=== PATIENT | male | born 1965 | race African-American/Black ===

== ENCOUNTER 2020-07-16 20:03 | Emergency (ER) | payer BC ==
[~2020-07-16] VITALS: Ht 188 cm; Wt 72.6 kg
[2020-07-16 20:18] LABS: BASOPHILS % (AUTO) 0.8 % (0.0-2.0); HEMATOCRIT 38 % (39-51); LYMPHOCYTES # (AUTO) 1.9 /CMM (0.8-4.8); LYMPHOCYTES % (AUTO) 39.5 % (20.0-44.0); MEAN CORPUSCULAR HGB CONC 34 g/dl (31.0-36.0); MEAN CORPUSCULAR VOLUME 91 fL (80-96); MONOCYTES # (AUTO) 0.6 /CMM (0.1-1.30); MONOCYTES % (AUTO) 12.2 % (2.0-12.0); NEUTROPHILS # (AUTO) 2.1 /CMM (1.8-8.9); NEUTROPHILS % (AUTO) 42.5 % (43.0-81.0); PLATELET COUNT (AUTO) 264 /CMM (150-450); RED BLOOD CELL COUNT(AUTO) 4.17 MIL/uL (4.5-6.0); WHITE BLOOD COUNT (AUTO) 4.9 K/uL (4.3-11.0)
--- NOTE | 2020-07-16 20:27 | NUR ---
covid swab was sent to lab
--- NOTE | 2020-07-16 20:30 | NUR ---
URINE COLLECTED. SENT TO LAB
[2020-07-16 20:48] LABS: CALCIUM, SERUM 9.3 mg/dL (8.5-10.1); CARBON DIOXIDE 27 mmol/L (21-32); CHLORIDE 105 mmol/L (98-107); CREATININE 0.9 mg/dL (0.6-1.3); GLUCOSE 119 mg/dL (74-106); POTASSIUM 4.1 mmol/L (3.5-5.1); SODIUM SERUM 141 mmol/L (136-145); UREA NITROGEN, BLOOD 14 mg/dL (7-18)
[2020-07-16 20:55] LABS: ALANINE AMINOTRANSFERASE 40 U/L (12-78); ALBUMIN 3.7 g/dL (3.4-5.0); ALCOHOL, BLOOD < 3 mg/dL (0-0); ALKALINE PHOSPHATASE 79 U/L (46-116); ASPARTATE AMINOTRANSFERASE 54 U/L (15-37); BILIRUBIN,DIRECT 0.1 mg/dL (0.0-0.2); BILIRUBIN,TOTAL 0.6 mg/dL (0.2-1.0)
[2020-07-16 20:58] LABS: ACETAMINOPHEN < 0 ug/ml (10-30)
[2020-07-16 20:59] LABS: BILIRUBIN,URINE NEGATIVE (NEGATIVE); COLOR,URINE YELLOW (YELLOW); LEUKOCYTE ESTERASE ,URINE NEGATIVE (NEGATIVE); NITRITE, URINE NEGATIVE (NEGATIVE); PROTEIN,URINE NEGATIVE (NEGATIVE); UGLUCOSE NEGATIVE (NEGATIVE); UROBILINOGEN,URINE 0.2 EU/dL (0.2)
--- NOTE | 2020-07-16 22:13 | NUR ---
FACESHEET AND CLINICALS FAXED TO [facility].
--- NOTE | 2020-07-17 00:10 | NUR ---
PT ACCEPTED TO [facility] BY DR BUTLER. UNIT 2. # FOR REPORT
--- NOTE | 2020-07-17 01:09 | NUR ---
[employer] CALLED FOR TRANSPORT. TRIP# [id number]
--- NOTE | 2020-07-17 03:21 | NUR ---
called [facility] transportation to follow up with trip and spoke to cherry. ETA fo [facility]: [phone]
[2020-07-17 03:34] VITALS: BP 120/82
--- NOTE | 2020-07-17 04:01 | NUR ---
report given to Clifford at [facility]
--- NOTE | 2020-07-17 05:16 | NUR ---
[facility] AT BEDSIDE FOR TRANSPORT
--- NOTE | 2020-07-17 05:21 | NUR ---
PT WAS PICKEDUP BY [facility] AND TRANSFERRED TO [facility]IA [facility] IN STABLE CONDITION. BELONGINGS WERE PICKED UP
== END 2020-07-17 05:22 ==
LOC: ER 20:10
DX: R45.851 Suicidal ideations (principal); D64.9 Anemia, unspecified; Z20.822 Contact with and (suspected) exposure to COVID-19; Z59.0 Homelessness; F31.9 Bipolar disorder, unspecified; F41.9 Anxiety disorder, unspecified
CPT/HCPCS: 36415; 80048; 80076; 80143; 80307; 80320; 81003; 85025; 87426; 99285; C9803; G0480

== ENCOUNTER 2021-04-15 15:37 | Emergency (ER) | payer BC, MEDICAID, OTHER ==
[~2021-04-15] VITALS: Ht 177.8 cm; Wt 72.6 kg
[2021-04-15 15:50] VITALS: BP 126/77
--- NOTE | 2021-04-15 15:50 | NUR ---
PT SELF PRESENTS TO ED C/O DEPRESSION FOR DAYS NOW. STATES HIS BELONGINGS GOT STOLEN W HIS USUAL PSYCH MEDICATION. NOW HE IS SAYING THAT HE HAS THOUGHTS OF HARMING OTHERS AND WANTS TO GO TO [facility] VOL[facility]. PT IS AAOX4, VERBALLY RESPONSIVE AND COOPERATIVE TO STAFF. STABLE VITALS. AWAITING MD CURTIS.
--- NOTE | 2021-04-15 15:54 | NUR ---
DR LECHUGA AT BEDSIDE FOR EVAL.
--- NOTE | 2021-04-15 16:15 | NUR ---
MILLING MACHINE OPERATOR GEAR AT BEDSIDE FOR BLOOD DRAW.
[2021-04-15 16:23] LABS: BASOPHILS # (AUTO) 0.1 K/uL (0.0-0.2); BASOPHILS % (AUTO) 1.1 % (0.0-2.0); EOSINOPHILS % (AUTO) 1.7 % (0.0-6.0); HEMATOCRIT 38 % (39-51); LYMPHOCYTES # (AUTO) 2.1 K/uL (0.8-4.8); LYMPHOCYTES % (AUTO) 33.6 % (20.0-44.0); MEAN CORPUSCULAR HGB CONC 34 g/dl (31.0-36.0); MEAN CORPUSCULAR VOLUME 90 fL (80-96); MONOCYTES # (AUTO) 0.4 K/uL (0.1-1.30); NEUTROPHILS # (AUTO) 3.5 K/uL (1.8-8.9); NEUTROPHILS % (AUTO) 56.6 % (43.0-81.0); PLATELET COUNT (AUTO) 300 K/uL (150-450); RED BLOOD CELL COUNT(AUTO) 4.27 MIL/uL (4.5-6.0); WHITE BLOOD COUNT (AUTO) 6.2 K/uL (4.3-11.0)
[2021-04-15 16:26] LABS: CALCIUM, SERUM 9.3 mg/dL (8.5-10.1); CARBON DIOXIDE 25 mmol/L (21-32); CHLORIDE 107 mmol/L (98-107); CREATININE 0.8 mg/dL (0.6-1.3); GLUCOSE 120 mg/dL (74-106); POTASSIUM 3.8 mmol/L (3.5-5.1); SODIUM SERUM 140 mmol/L (136-145); UREA NITROGEN, BLOOD 12 mg/dL (7-18)
[2021-04-15 16:29] LABS: BILIRUBIN,URINE NEGATIVE (NEGATIVE); COLOR,URINE YELLOW (YELLOW); LEUKOCYTE ESTERASE ,URINE NEGATIVE (NEGATIVE); NITRITE, URINE NEGATIVE (NEGATIVE); PROTEIN,URINE NEGATIVE (NEGATIVE); UGLUCOSE NEGATIVE (NEGATIVE); UROBILINOGEN,URINE 0.2 EU/dL (0.2)
[2021-04-15 16:32] LABS: ACETAMINOPHEN 0 ug/ml (10-30); ALANINE AMINOTRANSFERASE 27 U/L (12-78); ALBUMIN 3.6 g/dL (3.4-5.0); ALCOHOL, BLOOD < 3 mg/dL (0-0); ALKALINE PHOSPHATASE 76 U/L (46-116); ASPARTATE AMINOTRANSFERASE 28 U/L (15-37); BILIRUBIN,DIRECT 0.1 mg/dL (0.0-0.2); BILIRUBIN,TOTAL 0.6 mg/dL (0.2-1.0); TOTAL PROTEIN, SERUM 7.6 g/dL (6.4-8.2)
[2021-04-15 16:42] LABS: BACTERIA,URINE None seen /HPF (None Seen); WBC,URINE 0-2 /HPF (0-3)
[2021-04-15 16:43] LABS: SQUAMOUS EPITHELIAL CELL,UR None Seen /HPF (None Seen)
--- NOTE | 2021-04-15 18:50 | NUR ---
FAXED CLINICALS TO [facility]
--- NOTE | 2021-04-16 01:00 | NUR ---
ACCEPTED AT [facility] BY DR CORNEJO. #[phone] [facility] ETA: 45 MIN
--- NOTE | 2021-04-16 01:15 | NUR ---
REPORT GIVEN TO RAYSA AT [facility]
--- NOTE | 2021-04-16 01:31 | NUR ---
[facility] AT BED SIDE TO SECURITY OPERATIONS MANAGER THE PT
--- NOTE | 2021-04-16 01:50 | NUR ---
TRANSFERRED TO [facility] IN STABLE CONDITION WITH ALL HIS BELONGINGS
== END 2021-04-16 01:51 ==
LOC: ER 15:40
DX: R45.850 Homicidal ideations (principal); F31.9 Bipolar disorder, unspecified; Z20.822 Contact with and (suspected) exposure to COVID-19; Z59.00 Homelessness unspecified
CPT/HCPCS: 36415; 80048; 80076; 80143; 80307; 80320; 81001; 85025; 87426; 99285; C9803; G0480

== ENCOUNTER 2021-10-17 14:35 | Emergency (ER) | payer BC ==
[~2021-10-17] VITALS: Ht 185.4 cm; Wt 72.6 kg
--- NOTE | 2021-10-17 15:20 | NUR ---
BIBS FOR MEDICAL CLEARANCE, WANTS VOLUNTARY TO [facility]. THE PATIENT IS SI WITH A PLAN. THE PATIENT HAS HI. DENIES HAVING VISUAL/AUDITORY HALLUCINATIONS. DENIES PAIN. IN ROOM AIR AND DENIES SOB. RESPIRATION REGULAR AND UNLABORED. WILL CONTINUE TO MONITOR THE PATIENT.
--- NOTE | 2021-10-17 15:24 | NUR ---
COVID SWAB AND URINE COLLECTED AND SENT TO LAB
--- NOTE | 2021-10-17 15:24 | NUR ---
SECURITY PERSONNEL AT BEDSIDE FOR WANDING
[2021-10-17 15:54] LABS: BASOPHILS % (AUTO) 0.8 % (0.0-2.0); EOSINOPHILS % (AUTO) 3.9 % (0.0-6.0); HEMATOCRIT 40 % (39-51); HEMOGLOBIN 13.4 g/dL (13.5-17.5); LYMPHOCYTES # (AUTO) 1.9 K/uL (0.8-4.8); LYMPHOCYTES % (AUTO) 37.2 % (20.0-44.0); MEAN CORPUSCULAR HGB CONC 34 g/dl (31.0-36.0); MEAN CORPUSCULAR VOLUME 92 fL (80-96); MONOCYTES # (AUTO) 0.5 K/uL (0.1-1.30); MONOCYTES % (AUTO) 10.2 % (2.0-12.0); NEUTROPHILS # (AUTO) 2.4 K/uL (1.8-8.9); NEUTROPHILS % (AUTO) 47.9 % (43.0-81.0); PLATELET COUNT (AUTO) 303 K/uL (150-450); RED BLOOD CELL COUNT(AUTO) 4.35 MIL/uL (4.5-6.0)
[2021-10-17 16:03] LABS: CALCIUM, SERUM 8.6 mg/dL (8.5-10.1); CARBON DIOXIDE 29 mmol/L (21-32); CHLORIDE 105 mmol/L (98-107); CREATININE 0.8 mg/dL (0.6-1.3); GLUCOSE 108 mg/dL (74-106); POTASSIUM 3.7 mmol/L (3.5-5.1); SODIUM SERUM 141 mmol/L (136-145); UREA NITROGEN, BLOOD 11 mg/dL (7-18)
[2021-10-17 16:08] LABS: ALANINE AMINOTRANSFERASE 34 U/L (12-78); ALBUMIN 3.7 g/dL (3.4-5.0); ALCOHOL, BLOOD < 3 mg/dL (0-0); ALKALINE PHOSPHATASE 81 U/L (46-116); ASPARTATE AMINOTRANSFERASE 34 U/L (15-37); BILIRUBIN,DIRECT 0.1 mg/dL (0.0-0.2); BILIRUBIN,TOTAL 0.6 mg/dL (0.2-1.0); TOTAL PROTEIN, SERUM 7.4 g/dL (6.4-8.2)
[2021-10-17 16:11] LABS: BILIRUBIN,URINE NEGATIVE (NEGATIVE); COLOR,URINE YELLOW (YELLOW); LEUKOCYTE ESTERASE ,URINE NEGATIVE (NEGATIVE); NITRITE, URINE NEGATIVE (NEGATIVE); PH,URINE 6.5 (5.0-8.0); PROTEIN,URINE NEGATIVE (NEGATIVE); UGLUCOSE NEGATIVE (NEGATIVE); UROBILINOGEN,URINE 0.2 EU/dL (0.2)
[2021-10-17 16:11] LABS: ACETAMINOPHEN < 10 ug/ml (10-30)
--- NOTE | 2021-10-18 01:45 | NUR ---
justina faxed to [facility]
--- NOTE | 2021-10-18 03:11 | NUR ---
[facility]
--- NOTE | 2021-10-18 03:18 | NUR ---
[facility] ETA 45-60 MINS
--- NOTE | 2021-10-18 03:30 | NUR ---
REPORT GIVEN TO [place] [facility]
--- NOTE | 2021-10-18 04:05 | NUR ---
Eugenio fraser in [facility] - 10/18/21 at 0407 by BRUCE ALYCIA REPORT FILED WITH ROBERTO. OFFICERS WILL BE DISPATCHED.
--- NOTE | 2021-10-18 04:06 | NUR ---
Eugenio fraser in [facility] - 10/18/21 at 0408 by BRUCE RASHMI REPORT FILED WITH DIRECTOR OF SEARCH ENGINE MARKETING #[id number]. INCIDENT #[id number]
--- NOTE | 2021-10-18 04:07 | NUR ---
TARASOFF REPORT FILED WITH [employer] VALIDATION MANAGER #[id number]. INCIDENT #[id number]. OFFICERS WILL BE DISPATCHED
--- NOTE | 2021-10-18 05:04 | NUR ---
INCIDENT REPORT FILED WITH [employer] OFFICER MEGAN [id number] AND DREW [id number]. INFORMED PT DID NOT MEET TARASOFF CRITERIA DUE TO NOT PROVIDING SPECIFIC NAMES OF INIDIVIDUALS. HOWEVER, WAS INFORMED IF ANY ADDITIONAL INFORMATION IS OBTAINEDN TARASOFF CAN BE FILED AT [facility]#[id number]. PER [employer] NO FIREARMS REGISTERED UNDER PT NAME. [facility] CALLED AND INFORMED OF THIS INFORMATION AND SPOKE TO ANNIE.
--- NOTE | 2021-10-18 05:12 | NUR ---
orange picking supervisor eta 7am
[2021-10-18 07:58] VITALS: BP 132/76
--- NOTE | 2021-10-18 08:35 | NUR ---
TRANSPORTED TO [facility]. STABLE CONDITION.
== END 2021-10-18 08:37 ==
LOC: ER 14:36
DX: R45.850 Homicidal ideations (principal); F31.9 Bipolar disorder, unspecified; Z59.00 Homelessness unspecified; Z88.6 Allergy status to analgesic agent; Z20.822 Contact with and (suspected) exposure to COVID-19
CPT/HCPCS: 99285; 85025; 80048; 80076; 81003; 36415; 87426; 80143; 80320; 80307; C9803; G0480

== ENCOUNTER 2022-01-16 18:03 | Emergency (ER) | payer BC ==
[~2022-01-16] VITALS: Ht 185.4 cm; Wt 74.8 kg
--- NOTE | 2022-01-16 18:50 | NUR ---
SECURITY GONZALEZ AT BEDSIDE FOR WANDING
--- NOTE | 2022-01-16 18:52 | NUR ---
COVID SWAB COLLECTED, URINE COLLECTED SENT TO LAB
--- NOTE | 2022-01-16 19:01 | NUR ---
EPIDEMIOLOGY INTERNSHIP AT BEDSIDE FOR BLOOD DRAW
[2022-01-16 19:33] LABS: ALANINE AMINOTRANSFERASE 50 U/L (12-78); ALBUMIN 3.7 g/dL (3.4-5.0); ALCOHOL, BLOOD < 3 mg/dL (0-0); ALKALINE PHOSPHATASE 78 U/L (46-116); ASPARTATE AMINOTRANSFERASE 47 U/L (15-37); BILIRUBIN,DIRECT 0.1 mg/dL (0.0-0.2); BILIRUBIN,TOTAL 0.4 mg/dL (0.2-1.0); CALCIUM, SERUM 8.9 mg/dL (8.5-10.1); CARBON DIOXIDE 29 mmol/L (21-32); CHLORIDE 107 mmol/L (98-107); CREATININE 0.9 mg/dL (0.6-1.3); GLUCOSE 84 mg/dL (74-106); POTASSIUM 4.1 mmol/L (3.5-5.1); SODIUM SERUM 141 mmol/L (136-145); TOTAL PROTEIN, SERUM 7.6 g/dL (6.4-8.2); UREA NITROGEN, BLOOD 14 mg/dL (7-18)
[2022-01-16 19:38] LABS: ACETAMINOPHEN 0 ug/ml (10-30)
[2022-01-16 19:58] LABS: BILIRUBIN,URINE NEGATIVE (NEGATIVE); COLOR,URINE YELLOW (YELLOW); LEUKOCYTE ESTERASE ,URINE NEGATIVE (NEGATIVE); NITRITE, URINE NEGATIVE (NEGATIVE); PROTEIN,URINE NEGATIVE (NEGATIVE); UGLUCOSE NEGATIVE (NEGATIVE); UROBILINOGEN,URINE 0.2 EU/dL (0.2)
[2022-01-16 20:26] LABS: BASOPHILS % (AUTO) 0.6 % (0.0-2.0); EOSINOPHILS % (AUTO) 4.8 % (0.0-6.0); HEMATOCRIT 38 % (39-51); HEMOGLOBIN 12.7 g/dL (13.5-17.5); LYMPHOCYTES # (AUTO) 2.4 K/uL (0.8-4.8); LYMPHOCYTES % (AUTO) 35.7 % (20.0-44.0); MEAN CORPUSCULAR HGB CONC 33 g/dl (31.0-36.0); MEAN CORPUSCULAR VOLUME 92 fL (80-96); MONOCYTES # (AUTO) 0.6 K/uL (0.1-1.30); MONOCYTES % (AUTO) 8.9 % (2.0-12.0); NEUTROPHILS # (AUTO) 3.3 K/uL (1.8-8.9); PLATELET COUNT (AUTO) 295 K/uL (150-450); RED BLOOD CELL COUNT(AUTO) 4.15 MIL/uL (4.5-6.0); WHITE BLOOD COUNT (AUTO) 6.6 K/uL (4.3-11.0)
--- NOTE | 2022-01-16 22:14 | NUR ---
FACESHEET AND CLINCIALS FAXED TO [facility].
--- NOTE | 2022-01-17 03:47 | NUR ---
patient accepted at [facility] under Dr Garcia report [phone]
--- NOTE | 2022-01-17 05:00 | NUR ---
PT GOING TO [facility] AT 0900 [facility]IA [facility]
--- NOTE | 2022-01-17 09:52 | NUR ---
Transfer Info: Transfer to [place] Reason: Psych/continuity of care Accepting MD: Linda Condition on transfer: Stable Report to: NISREEN Vu Transported by:[facility] unit [id number]
[2022-01-17 10:13] VITALS: BP 122/70
== END 2022-01-17 10:19 ==
LOC: ER 18:10
DX: R45.851 Suicidal ideations (principal); U07.1 COVID-19; Z59.00 Homelessness unspecified; F31.9 Bipolar disorder, unspecified
CPT/HCPCS: 99285; 85025; 80048; 80076; 81003; 36415; 87426; 80143; 80320; 80307; C9803; G0480

== ENCOUNTER 2023-07-02 00:14 | Emergency (ER) | payer BC, MEDICAID | END 2023-07-02 05:00 | disposition left against medical advice (07) | LOC: ER 00:17 | DX: R53.1 Weakness (principal); R42 Dizziness and giddiness; Z53.21 Procedure and treatment not carried out due to patient leaving prior to being seen by health care provider ==

== ENCOUNTER 2024-01-05 23:13 | Emergency (ER) | payer BC ==
[~2024-01-05] VITALS: Ht 182.9 cm; Wt 77.1 kg
[2024-01-06 01:11] LABS: BASOPHILS % (AUTO) 0.8 % (0.0-2.0); EOSINOPHILS # (AUTO) 0.3 K/uL (0.0-0.7); EOSINOPHILS % (AUTO) 4.9 % (0.0-6.0); HEMATOCRIT 38 % (39-51); HEMOGLOBIN 12.8 g/dL (13.5-17.5); LYMPHOCYTES # (AUTO) 1.8 K/uL (0.8-4.8); LYMPHOCYTES % (AUTO) 34.1 % (20.0-44.0); MEAN CORPUSCULAR HEMOGLOBIN 31 PG (26.0-33.0); MEAN CORPUSCULAR HGB CONC 34 g/dl (31.0-36.0); MEAN CORPUSCULAR VOLUME 93 fL (80-96); MONOCYTES # (AUTO) 0.7 K/uL (0.1-1.30); MONOCYTES % (AUTO) 12.4 % (2.0-12.0); NEUTROPHILS # (AUTO) 2.6 K/uL (1.8-8.9); NEUTROPHILS % (AUTO) 47.8 % (43.0-81.0); PLATELET COUNT (AUTO) 235 K/uL (150-450); RED BLOOD CELL COUNT(AUTO) 4.12 MIL/uL (4.5-6.0); RED CELL DISTRIBUTION WIDTH 14.5 % (11.5-15.0); WHITE BLOOD COUNT (AUTO) 5.4 K/uL (4.3-11.0)
[2024-01-06 01:22] LABS: CALCIUM, SERUM 8.9 mg/dL (8.5-10.1); CREATININE 0.9 mg/dL (0.6-1.3); POTASSIUM 3.8 mmol/L (3.5-5.1)
[2024-01-06 01:27] LABS: ALBUMIN 3.8 g/dL (3.4-5.0); BILIRUBIN,DIRECT 0.1 mg/dL (0.0-0.2); BILIRUBIN,TOTAL 0.5 mg/dL (0.2-1.0); TOTAL PROTEIN, SERUM 7.5 g/dL (6.4-8.2)
[2024-01-06 01:49] LABS: APPEARANCE,URINE CLEAR (CLEAR); BILIRUBIN,URINE NEGATIVE (NEGATIVE); BLOOD, URINE NEGATIVE Ery/uL (NEGATIVE); COLOR,URINE YELLOW (YELLOW); KETONES,URINE NEGATIVE (NEGATIVE); LEUKOCYTE ESTERASE ,URINE NEGATIVE (NEGATIVE); NITRITE, URINE NEGATIVE (NEGATIVE); PROTEIN,URINE NEGATIVE (NEGATIVE); UGLUCOSE NEGATIVE (NEGATIVE); UROBILINOGEN,URINE 0.2 EU/dL (0.2)
[2024-01-06 02:34] VITALS: BP 132/80; TEMP 98.3; O2SAT 96
== END 2024-01-06 03:03 | disposition home or self-care (01) ==
LOC: ER 23:14
DX: K40.90 Unilateral inguinal hernia, without obstruction or gangrene, not specified as recurrent (principal); R03.0 Elevated blood-pressure reading, without diagnosis of hypertension; F31.9 Bipolar disorder, unspecified; Z59.00 Homelessness unspecified; Z88.5 Allergy status to narcotic agent
CPT/HCPCS: 36415; 72192-TC; 80048-TC; 80076-TC; 83690-TC; 85025-TC